=== PATIENT | female | born 1935 | race Caucasian/White ===

== ENCOUNTER 2017-12-10 22:45 | Observation (INO) | payer MEDICARE, OTHER ==
[~2017-12-10] VITALS: Ht 172.7 cm; Wt 74.8 kg
[~2017-12-10 22:45] MED LIST: CALCIUM PO; MIRALAX PO; SYNTHROID75 MCG PO; VITAMIN D PO; VITAMIN E PO
[2017-12-10 23:45] LABS: BASOPHILS % 0.6 % (0.0-1.0); EOSINOPHILS # (AUTO) 0.1 (0.0-0.4); EOSINOPHILS % 2.3 % (0.0-6.0); HEMATOCRIT 38.6 % (34.2-44.1); HEMOGLOBIN 13.4 g/dL (12.0-16.0); LYMPHOCYTES # (AUTO) 0.8 (1.0-3.2); LYMPHOCYTES % 16.1 % (18.0-39.1); MEAN CORPUSCULAR HEMOGLOBIN 29.3 pg (28-32); MEAN CORPUSCULAR HGB CONC 34.7 g/dL (31-35); MEAN CORPUSCULAR VOLUME 84.3 fL (81-99); MONOCYTES # (AUTO) 0.6 (0.2-0.8); MONOCYTES % 12.4 % (4.4-11.3); NEUTROPHILS # (AUTO) 3.3 (2.1-6.9); NEUTROPHILS % 68.2 % (38.7-80.0); PLATELET COUNT 189 x10e3/uL (140-360); RED BLOOD COUNT 4.58 x10e6/uL (3.6-5.1); RED CELL DISTRIBUTION WIDTH 13.5 % (11.7-14.4)
[2017-12-11] VITALS (7 sets, daily range): BP systolic 137–177; BP diastolic 63–82
[2017-12-11 00:01] LABS: INR 0.99; PROTHROMBIN TIME 12.3 seconds (11.9-14.5)
[2017-12-11 00:02] LABS: PARTIAL THROMBOPLASTIN TIME 30.8 seconds (23.8-35.5)
[2017-12-11 00:11] LABS: ANION GAP 13.8 mmol/L (8-16); CALCIUM 10.3 mg/dL (8.4-10.2); CREATININE, SERUM 1.23 mg/dL (0.57-1.11); MAGNESIUM 1.6 MG/DL (1.3-2.1); POTASSIUM 3.8 mmol/L (3.5-5.1)
--- NOTE | 2017-12-11 00:12 | Diagnostic Imaging Report ---
EXAMINATION: Head CT without contrast. HISTORY:Confusion. COMPARISON:Multiple prior studies, most recent MRI brain from 03/26/[address] brain from 01/22/2011. TECHNIQUE: Multidetector axial images were obtained from the foramen magnum to the vertex without contrast. The images were reconstructed using brain and bone algorithms. Thin section brain images were reformatted into coronal and sagittal planes. Intravenous contrast: None IMAGE QUALITY: Acceptable. FINDINGS: Skull/scalp: No lytic or blastic. lesions. No surgical changes. Parenchyma: Nonspecific bilateral frontoparietal patchy white matter hypodensity are likely related to small vessel ischemic changes. No acute hemorrhage, mass or acute major vascular territorial infarct. Arteries: Atherosclerotic calcification in bilateral carotid siphon. Dural sinuses: No abnormal density suggestive of thrombosis. Ventricles: Mild compensated dilatation due to volume loss. Extra-axial spaces: No abnormal density. Brain volume: Normal for age. Craniocervical junction: No mass, Chiari malformation, or basilar invagination. Sella: No mass. Paranasal/mastoid sinuses: Moderate mucosal thickening in hypoplastic right sphenoid sinus. IMPRESSION: 1. No acute intracranial abnormality, particularly no acute hemorrhage, mass or acute major vascular territorial infarct. 2. Moderate supratentorial white matter microvascular ischemic changes. 3. Chronic mucosal inflammatory changes in right sphenoid sinus. Signed by: Dr. Shereen Damon M.D. on 12/11/2017 12:08 AM
[2017-12-11 00:17] LABS: BILIRUBIN,URINE NEGATIVE (NEGATIVE); CLARITY,URINE CLOUDY (CLEAR); COLOR,URINE YELLOW (YELLOW); KETONES,URINE NEGATIVE (NEGATIVE); LEUKOCYTE ESTERASE ,URINE 2+ (NEGATIVE); NITRITE,URINE NEGATIVE (NEGATIVE); PROTEIN,URINE DIPSTICK NEGATIVE (NEGATIVE); URINE UROBILINOGEN 0.2 mg/dL (0.2 - 1)
--- NOTE | 2017-12-11 00:24 | Diagnostic Imaging Report ---
EXAM: CHEST SINGLE (PORTABLE), AP 1 view INDICATION: Confused COMPARISON: PA and lateral view of the chest December 16, 2016 FINDINGS: LINES/TUBES: None LUNGS: No consolidations or edema. PLEURA: No effusions or pneumothorax. HEART AND MEDIASTINUM: Normal size and contour. BONES AND SOFT TISSUES: No acute findings. Chronic fractures of the left upper ribs. IMPRESSION: No acute thoracic abnormality. Signed by: Dr. Tiffany Grayson M.D. on 12/11/2017 12:21 AM
[2017-12-11 00:31] LABS: CREATINE KINASE MB 0.8 ng/mL (0-5.0); THYROID STIMULATING HORMONE 10.773 uIU/mL (0.350-4.940)
[2017-12-11 00:36] LABS: BACTERIA,URINE MANY /HPF; EPITHELIAL CELLS,URINE RARE /LPF; RBC,URINE 0-5 /HPF (0-5); WBC,URINE (MAN) >50 /HPF (0-5)
--- OUTSIDE RECORDS SUMMARY | 2017-12-11 02:29 | XMS REPORT ---
[facility] Address Unknown Phone Unavailable Care Team Providers Care Industrial Cafeteria Manager Name Role Phone JUANCARLOS GREGORY Unavailable Unavailable Problems This patient has no known problems. Allergies, Adverse Reactions, Alerts This patient has no known allergies or adverse reactions. Medications This patient has no known medications. Results Test Description Test Time Test Comments Text Results Atomic Results Result Comments CT BRAIN WO [place] [address] Patient Name: NURY MCCLURE I MR #: [id number] : 1935 Age/Sex: 82/F Req #: [id number] Adm Physician: Ordered by: JUANCARLOS GREGORY MD Report #: [id number] Location: ER Room/Bed: Procedure: [id number] CT/CT BRAIN WO Exam Date: Exam Time: REPORT STATUS: Signed EXAMINATION: Head CT without contrast. HISTORY: Confusion. COMPARISON:Multiple prior studies, most recent MRI brain from 03/26/[address] brain from 01/22/2011. TECHNIQUE: Multidetector axial images were obtained from the foramen magnum to the vertex without contrast. The images were reconstructed using brain and bone algorithms. Thin section brain images were reformatted into coronal and sagittal planes. Intravenous contrast: None IMAGE QUALITY: Acceptable. FINDINGS: Skull/scalp: No lytic or blastic. lesions. No surgical changes. Parenchyma: Nonspecific bilateral frontoparietal patchy white matter hypodensity are likely related to small vessel ischemic changes. No acute hemorrhage, mass or acute major vascular territorial infarct. Arteries: Atherosclerotic calcification in bilateral carotid siphon. Dural sinuses: No abnormal density suggestive of thrombosis. Ventricles: Mild compensated dilatation due to volume loss. Extra-axial spaces: No abnormal density. Brain volume: Normal for age. Craniocervical junction: No mass, Chiari malformation, or basilar invagination. Sella: No mass. Paranasal/mastoid sinuses: Moderate mucosal thickening in hypoplastic right sphenoid sinus. IMPRESSION: 1. No acute intracranial abnormality, particularly no acute hemorrhage, mass or acute major vascular territorial infarct. 2. Moderate supratentorial white matter microvascular ischemic changes. 3. Chronic mucosal inflammatory changes in right sphenoid sinus. Signed by: Dr. Shereen Damon M.D. on 12:08 AM Dictated By: SHEREEN DAMON MD Transcribed By: GORAN on 12/11/177 COPY TO: JUANCARLOS GREGORY MD CHEST SINGLE (PORTABLE) [place] [address] Patient Name: NURY MCCLURE I MR #: [id number] : 1935 Age/Sex: 82/F Req #: [id number] Adm Physician: Ordered by: JUANCARLOS GREGORY MD Report #: [id number] Location: ER Room/Bed: Procedure: [id number] DX/CHEST SINGLE (PORTABLE) Exam Date: Exam Time: REPORT STATUS: Signed EXAM: CHEST SINGLE (PORTABLE ), AP 1 view INDICATION: Confused COMPARISON: PA and lateral view of the chest December 16, 2016 FINDINGS: LINES/TUBES: None LUNGS: No consolidations or edema. PLEURA: No effusions or pneumothorax. HEART AND MEDIASTINUM: Normal size and contour. BONES AND SOFT TISSUES: No acute findings. Chronic fractures of the left upper ribs. IMPRESSION: No acute thoracic abnormality. Signed by: Dr. Mayi Grayson M.D. on 12/11/2017 12:21 AM Dictated By: MAYI GRAYSON MD Transcribed By: GORAN on 20 COPY TO: JUANCARLOS GREGORY MD
[2017-12-11] MEDS ORDERED: ONDANSETRON HCL INJ 2 MG/ML VIAL IV PRN (02:30)
[2017-12-11] MEDS: CEFTRIAXONE SOD 1 GM VIAL IV SCH ×3 (03:18→20:45)
[2017-12-11] MEDS ORDERED: CLONIDINE HCL 0.1 MG TAB PO ONE (04:00)
[2017-12-11 07:25] LABS: CREATINE KINASE MB 0.7 ng/mL (0-5.0)
[2017-12-11] MEDS: ASPIRIN 81 MG ENTERIC COATED PO SCH (08:07)
[2017-12-11] MEDS ORDERED: PANTOPRAZOLE SO40 MG PO (09:11)
[2017-12-11] MEDS ORDERED: REFRESH TEARS15 ML (09:17)
[2017-12-11] MEDS ORDERED: DICYCLOMINE HCL10 MG (09:17)
[2017-12-11] MEDS ORDERED: VITAMIN D32000 UNI1 (09:17)
[2017-12-11] MEDS ORDERED: CALCIUM CARBON500 MG PO (09:17)
[2017-12-11] MEDS ORDERED: CARAFATE1 GM/10 ML PO (09:17)
[2017-12-11] MEDS ORDERED: align (09:17)
[2017-12-11] MEDS ORDERED: LISINOPRIL 10 MG TAB PO ONE (14:45)
[2017-12-11] MEDS ORDERED: POLYETHYLENE GLYCOL 3350 17 GM PACK PO PRN (14:45)
[2017-12-11] MEDS: DICYCLOMINE HCL 10 MG CAP PO SCH ×2 (15:57→20:45)
[2017-12-11 16:06] LABS: CREATINE KINASE MB 0.8 ng/mL (0-5.0)
[2017-12-11] MEDS: SUCRALFATE 1 GM/10 ML SUSP PO SCH (16:11)
--- NOTE | 2017-12-11 18:32 | Consultation ---
DATE OF CONSULTATION: December 11, 2017 NEUROLOGICAL CONSULTATION ADMITTING DIAGNOSIS: TIA. This 82-year-old healthy woman had been in her usual state of health until yesterday evening when she started having a little trouble with some confusion, difficulty finding words and she felt some funny sensation on the left side of her face. She did not say that was weak or there was numbness. She denies any weakness or paresthesia of the arms or legs. She did not have any trouble with balance and no visual difficulty. She had no trouble swallowing at the time. She was brought to the emergency room. in the emergency room and everything was normal, except the blood pressure, according to the daughter, the systolic blood pressure was over 210. The patient denies any previous episode like this in the past. PAST MEDICAL HISTORY: She has history of hypothyroidism. She never had history of high blood pressure until last night. ALLERGIES: NONE KNOWN. SOCIAL HISTORY: Does not smoke or drink. REVIEW OF SYSTEMS: All 12 steps negative except as described above. PHYSICAL EXAMINATION VITAL SIGNS: Blood pressure at the present time is 137/65, pulse 57, temperature 96.2. LUNGS: Clear to auscultation and percussion. HEART: Regular sinus rhythm with no murmurs. ABDOMEN: Soft and nontender, no organomegaly. MUSCULOSKELETAL: Lower extremities with no edema, no cyanosis, no clubbing. NEUROLOGIC: Mental status: Normal. Oriented x3. Speech is clear with no dysarthria or dysphagia. Cranial nerves: Pupils are both equal and reactive. Extraocular movements were full. There is no nystagmus. Visual field was normal. No facial weakness. Tongue protrudes midline. Palatal movement is normal. Motor power: Able to elevate arms and legs against gravity without any difficulty. There was no evidence of weakness in either proximal or distal muscles in both upper and lower extremities. Plantar stimulation down bilaterally. HEAD: Normocephalic. NECK: Supple. Carotid pulsations were present bilaterally. There were no bruits. At the present time, the patient is back to normal. She is being ambulated without any problem. LABORATORY DATA: CBC shows a white count of 4800 with a hemoglobin of 13.4 with hematocrit 38.6, platelets 189,000. Chemistry: Sodium 131, potassium 3.8, BUN 17, creatinine 1.22, which is elevated. Estimated GFR is low at 42. Calcium 10.3. Liver enzymes are all normal. TSH is elevated . Urinalysis shows WBC greater than 50, bacteria many, blood 1+, protein negative. I reviewed the MRI of the brain myself and I do not see any evidence of any acute ischemia or lesion. We do not have the official report. CAT scan was negative. IMPRESSION 1. Mild transient ischemic attack. 2. Hypertension. 3. Urinary tract infection. RECOMMENDATIONS: The patient was explained about all my findings. We are awaiting the results of the MRI and the MRA and the echocardiogram. To continue with Plavix. Continue home medications. I will reevaluate tomorrow. Job#: [id number]
--- NOTE | 2017-12-11 19:05 | Diagnostic Imaging Report ---
Exams: Brain MRI, cervical MRA and intracranial MRAs without IV contrast History: Possible TIA Comparison studies: Multiple prior brain MRIs, head CTs and MRIs which date to the most remote brain MRI of 01/2010, most recent head CT of 12/10/2017 and most recent brain MRI/MRA of 03/26/2017. Technique: Brain: sagittal and axial T2 FS, axial DWI, axial T1, axial T2*GRE and axial coronal T2 FLAIR. Cervical MRA: Axial 2-D [id number] with 3-D MIP reformats. Intracranial MRA: Axial 3-D [id number] with sagittal, coronal and 3-D MIP reformats. Intravenous contrast: None Findings: Brain: Scalp: No abnormal signal. No masses. Bone marrow: Normal in signal intensity. Brain sulci: Mildly prominent but age appropriate Ventricles: Normal in size. No hydrocephalus. Extra-axial spaces: No mass, no fluid collection. Parenchyma: No mass, hemorrhage or acute ischemia. A few scattered and mildly confluent T2 FLAIR hyperintense foci in the supratentorial white matter and a few foci of T2 FLAIR hyperintensity in the humphrey are nonspecific but most compatible with chronic small vessel ischemic changes. Suprasellar region: No abnormalities. Craniocervical junction: No abnormalities. The foramen magnum is patent. No Chiari malformations. Vessels: Normal flow-voids in the arteries and sinuses. Cervical MRA: If present, stenosis is calculated utilizing the NASCET method which calculates the degree of stenosis with reference to the normal lumen of the carotid artery distal to the stenosis. Exam is limited by artifacts related to patient motion. Common carotid arteries: Patent. No signal abnormalities. Internal carotid arteries: Patent. No signal abnormalities. Carotid bulbs: Patent. No gross stenosis though evaluation is limited by motion artifacts. Vertebral arteries: Patent. No signal abnormalities.. Intracranial MRA: Internal carotid arteries: Patent bilaterally. Mild luminal irregularity without significant stenosis in the cavernous segments related to calcified plaque is seen on the previous head CT. Middle cerebral arteries: Patent, no signal abnormalities in the M1 and M2 segments. Anterior cerebral arteries: Patent, no signal abnormalities in the A1 and A2 segments. Vertebrobasilar circulation: Patent. No signal abnormalities.. Anatomical variants: Acom: Visualized. Pcoms:. On the right. Not well visualized, likely hypoplastic on the left. Vertebral arteries: Codominant. Incidental findings: Chronic inflammatory changes in the right sphenoid sinus. IMPRESSION: Brain: 1. No acute abnormalities. 2. Mild to moderate chronic microvascular ischemic changes. Cervical MRA: 1. Exam is limited by artifacts related to patient motion. 2. Patent cervical carotid and vertebral arteries. 3. No gross stenosis at the cervical carotid bulbs, though artifacts limit evaluation. Intracranial MRA: 1. Nonstenotic atherosclerosis in the carotid siphons. 2. No additional intracranial MRA l abnormalities. Signed by: Dr. Brain Coates M.D. on 12/11/2017 7:01 PM
[2017-12-12] VITALS: BP 118/56
[2017-12-12 04:00] VITALS: BP 96/53
[2017-12-12] MEDS ORDERED: LEVOTHYROXINE SODIUM 75 MCG TAB PO SCH ×2 (06:00→09:00)
[2017-12-12 07:04] LABS: CHOL/HDL RATIO 3.4 (3.0-3.6)
[2017-12-12 08:00] VITALS: BP 123/57
[2017-12-12 08:17] VITALS: BP 123/57
[2017-12-12] MEDS ORDERED: PANTOPRAZOLE SOD 40 MG TABEC PO SCH (09:00)
[2017-12-12] MEDS ORDERED: OYST-CAL-D 500MG TABLET PO SCH ×2 (09:00)
[2017-12-12] MEDS ORDERED: LISINOPRIL 10 MG TAB PO SCH (09:00)
[2017-12-12] MEDS: SUCRALFATE 1 GM/10 ML SUSP PO SCH (10:07)
[2017-12-12] MEDS: DICYCLOMINE HCL 10 MG CAP PO SCH (10:07)
[2017-12-12] MEDS: ASPIRIN 81 MG ENTERIC COATED PO SCH (10:07)
[2017-12-12] MEDS: CEFTRIAXONE SOD 1 GM VIAL IV SCH (10:07)
[2017-12-12] MEDS ORDERED: AUGMENTIN 875-1 EACH PO (10:45)
[2017-12-12] MEDS ORDERED: PLAVIX75 MG PO (10:46)
[2017-12-12 11:30] VITALS: BP 178/69
== END 2017-12-12 11:18 | disposition home or self-care (01) ==
LOC: ER 22:45 → ERHOLD 12-11 02:27 → IMCU 12-11 02:52
DX: G45.2 Multiple and bilateral precerebral artery syndromes (principal); N30.00 Acute cystitis without hematuria; I10 Essential (primary) hypertension; E03.9 Hypothyroidism, unspecified
CPT/HCPCS: 36415 ×2; 70450; 70544; 70547; 70551; 71045; 80053; 80061; 81001; 82550 ×2; 82553 ×2; 83735; 84443; 84484 ×2; 85025; 85610; 85730; 87086; 93005; 93306; 97139; 99284; G0378 ×2; J0696 ×2

== ENCOUNTER 2018-03-10 19:40 | Observation (INO) | payer MEDICARE, OTHER ==
[~2018-03-10] VITALS: Ht 172.7 cm; Wt 69.1 kg
[~2018-03-10 19:40] MED LIST changes: +AUGMENTIN 875-1 EACH PO; +CALCIUM CARBON500 MG PO; +CARAFATE1 GM/10 ML PO; +DICYCLOMINE HCL10 MG; +PANTOPRAZOLE SO40 MG PO; +PLAVIX75 MG PO; +REFRESH TEARS15 ML; +VITAMIN D32000 UNI1; +align
[2018-03-10] MEDS ORDERED: METHYLPREDNISOLONE SOD SUCC 125 MG/2ML VIAL IV STA (20:16)
[2018-03-10] MEDS ORDERED: DIPHENHYDRAMINE HCL INJ 50 MG/ML VIAL IV ONE (20:30)
[2018-03-10] MEDS ORDERED: SODIUM CHLORIDE 0.9% 500ML 500 ML IV ONE ×2 (20:30→23:15)
[2018-03-10] MEDS ORDERED: FAMOTIDINE 20 MG/2 ML VIAL IV NR (20:30)
[2018-03-10 20:37] LABS: BASOPHILS % 0.1 % (0.0-1.0); EOSINOPHILS % 0.3 % (0.0-6.0); HEMOGLOBIN 13.8 g/dL (12.0-16.0); LYMPHOCYTES # (AUTO) 0.3 (1.0-3.2); LYMPHOCYTES % 2.2 % (18.0-39.1); MEAN CORPUSCULAR HEMOGLOBIN 29.8 pg (28-32); MEAN CORPUSCULAR HGB CONC 35.4 g/dL (31-35); MEAN CORPUSCULAR VOLUME 84.2 fL (81-99); MONOCYTES # (AUTO) 0.8 (0.2-0.8); NEUTROPHILS # (AUTO) 12.7 (2.1-6.9); PLATELET COUNT 180 x10e3/uL (140-360); RED BLOOD COUNT 4.63 x10e6/uL (3.6-5.1); RED CELL DISTRIBUTION WIDTH 13.8 % (11.7-14.4)
[2018-03-10 20:46] LABS: INR 1.14; PARTIAL THROMBOPLASTIN TIME 29.8 seconds (23.8-35.5); PROTHROMBIN TIME 13.7 seconds (11.9-14.5)
[2018-03-10 20:56] LABS: ALBUMIN 3.9 g/dL (3.5-5.0); ALBUMIN/GLOBULIN RATIO 1.1 (0.8-2.0); CALCIUM 9.8 mg/dL (8.4-10.2); CREATININE, SERUM 1.16 mg/dL (0.57-1.11); MAGNESIUM 1.5 MG/DL (1.3-2.1)
[2018-03-10 20:58] LABS: B-TYPE NATRIURETIC PEPTIDE2 221.1 pg/mL (0-100)
--- NOTE | 2018-03-10 21:10 | Diagnostic Imaging Report ---
EXAMINATION: CHEST SINGLE (NOT PORTABLE) INDICATION: \S\PALPITATIONS COMPARISON: Chest x-ray 12/10/2017 FINDINGS: AP view TUBES and LINES: None. LUNGS: Lungs are well inflated. There are bibasilar atelectasis and scarring. There is no evidence of pneumonia or pulmonary edema. PLEURA: No pleural effusion or pneumothorax. HEART AND MEDIASTINUM: The cardiomediastinal silhouette is unremarkable. BONES AND SOFT TISSUES: No acute osseous lesion. Numerous left healed rib fracture deformities. Soft tissues are unremarkable. UPPER ABDOMEN: No free air under the diaphragm. IMPRESSION: Bibasilar atelectasis and scarring. Signed by: Dr. Efraín Abad M.D. on 03/10/2018 9:07 PM
[2018-03-10 21:15] LABS: CREATINE KINASE MB 0.3 ng/mL (0-5.0); THYROID STIMULATING HORMONE 2.958 uIU/mL (0.350-4.940)
[2018-03-11] VITALS (9 sets, daily range): BP systolic 121–135; BP diastolic 59–71
[2018-03-11 00:26] LABS: BILIRUBIN,URINE 1+ (NEGATIVE); COLOR,URINE YELLOW (YELLOW); KETONES,URINE TRACE (NEGATIVE); LEUKOCYTE ESTERASE ,URINE NEGATIVE (NEGATIVE); NITRITE,URINE NEGATIVE (NEGATIVE); PROTEIN,URINE DIPSTICK 1+ (NEGATIVE); URINE UROBILINOGEN 0.2 mg/dL (0.2 - 1)
[2018-03-11 00:31] LABS: CLARITY,URINE HAZY (CLEAR); RBC,URINE 0-5 /HPF (0-5)
[2018-03-11 00:32] LABS: BACTERIA,URINE MODERATE /HPF; EPITHELIAL CELLS,URINE FEW /LPF; MUCUS,URINE MANY (RARE); TRANSITIONAL EPI CELLS,URINE FEW
[2018-03-11] MEDS ORDERED: ONDANSETRON HCL INJ 2 MG/ML VIAL IV PRN (01:00)
[2018-03-11] MEDS: CEFTRIAXONE SOD 1 GM VIAL IV SCH ×2 (01:57→13:04)
[2018-03-11] MEDS: SODIUM CHLORIDE 0.9% 1000ML 1,000 ML IV SCH ×3 (01:57→20:31)
[2018-03-11 05:14] LABS: ALBUMIN 3.3 g/dL (3.5-5.0); ALBUMIN/GLOBULIN RATIO 1.1 (0.8-2.0); ANION GAP 13.7 mmol/L (8-16); CREATININE, SERUM 1.1 mg/dL (0.57-1.11); POTASSIUM 3.7 mmol/L (3.5-5.1)
[2018-03-11 05:22] LABS: CREATINE KINASE MB 0.3 ng/mL (0-5.0)
[2018-03-11 06:10] LABS: BASOPHILS % 0.2 % (0.0-1.0); EOSINOPHILS % 0.1 % (0.0-6.0); HEMATOCRIT 33.9 % (34.2-44.1); HEMOGLOBIN 11.7 g/dL (12.0-16.0); LYMPHOCYTES # (AUTO) 0.6 (1.0-3.2); MEAN CORPUSCULAR HEMOGLOBIN 29.5 pg (28-32); MEAN CORPUSCULAR HGB CONC 34.5 g/dL (31-35); MEAN CORPUSCULAR VOLUME 85.6 fL (81-99); MONOCYTES # (AUTO) 0.2 (0.2-0.8); MONOCYTES % 1.9 % (4.4-11.3); NEUTROPHILS # (AUTO) 8.7 (2.1-6.9); NEUTROPHILS % 91.3 % (38.7-80.0); PLATELET COUNT 157 x10e3/uL (140-360); RED BLOOD COUNT 3.96 x10e6/uL (3.6-5.1); RED CELL DISTRIBUTION WIDTH 13.8 % (11.7-14.4)
[2018-03-11] MEDS: FAMOTIDINE 20 MG/2 ML VIAL IV SCH ×2 (08:46→17:45)
[2018-03-11 11:48] LABS: CREATINE KINASE 33 IU/L (29-168)
--- NOTE | 2018-03-11 16:39 | Consultation ---
DATE OF CONSULTATION: March 11, 2018 REFERRING PHYSICIAN: Dr. Robles REASON FOR CONSULTATION: Chronic urinary tract infections. HISTORY: Patient, by history, comes to the office with a history of urinary tract infection, chronic, since of last year. The interesting thing is about that time the patient had a pessary placed in by her metal buildings assembler because of a prolapsing vagina. She was being treated with Macrobid once a day and she still has problems with infections. She came to the office, we obtained a urine culture which revealed multiple organisms like it was a contaminant. She was brought back to the office where a catheterized specimen revealed enterococcus and ever and she was given appropriate medications. She stated that after taking her medications she felt ill to the point of having nausea, vomiting, and having lack of concentration. She came to the hospital after that. Here in the hospital a urine culture has been performed. Urinalysis revealed a moderate amount of bacteria with negative nitrites. In the office, a catheterized specimen revealed 100% enterococcus sensitive to Augmentin and she had been placed on Augmentin. Doubt very much that the culture, unless it was catheterized here in the hospital, would be really bladder population, this is probably going to be contamination. Also the urinalysis done here in the hospital yesterday showed many mucous. Her BUN was 18 and the creatinine was 1.1. White count was 13.9 upon admission, today is 9.5. Patient had a chest x-ray upon coming into the hospital and the chest x-ray showed some atelectasis and scarring. IMPRESSION 1. History of urinary tract infection. 2. Side effects of medication. RECOMMENDATIONS: While the patient is in the hospital, we will await the final report on her urine culture. In the office it proved to be ever and enterococcus sensitive to Augmentin which she was taking. Here in the hospital I would like to do an ultrasound of her kidneys and make sure that the kidneys are free of stones or cysts. We will also be checking to make sure that her bladder empties well. She does have a pessary. This may cause an obstruction of the flow of urine. We will be checking for that. Job#: [id number] JACKIE
[2018-03-11] MEDS: DICYCLOMINE HCL 10 MG CAP PO SCH ×2 (17:45→20:31)
[2018-03-11] MEDS: SUCRALFATE 1 GM/10 ML SUSP PO SCH (17:45)
--- NOTE | 2018-03-11 18:01 | Diagnostic Imaging Report ---
PROCEDURE:US RETROPERITONEAL ( KIDNEY ). COMPARISON:None. INDICATIONS:UTI, PLEASE DO PRE AND POST VOID OF THE BLADDER TECHNIQUE: Morrissey-scale and color sonographic images of the bilateral kidneys and bladder where obtained in transverse and longitudinal planes. FINDINGS: RIGHT KIDNEY: 8.8 x 3.6 x 4.9 cm, cortex 1 cm Cysts: None Solid masses: Hyperechoic 2 x 2.1 x 1.8 cm lesion in the interpolar region. Stones: None Hydronephrosis: None Echogenicity: Normal LEFT KIDNEY: 10.1 x 5.5 x 5.4 cm, cortex 1.8 cm Cysts: None Solid masses: None Stones: None Hydronephrosis: None Echogenicity: Normal Bladder: Mild wall thickening measuring 5 mm. Pre-void volume: 186.2 cc Post void volume: Collapsed. CONCLUSION: No significant post void residuals within the bladder. Mild bladder wall thickening in keeping with infectious cystitis. Hyperechoic 2 cm lesion in the right kidney may represent an angiomyolipoma. Recommend followup ultrasound in 6 months, or alternatively MRI abdomen without and with contrast if definitive characterization is desired. Dictated by: Jeffy Torres M.D. on 03/11/2018 at 18:04 Electronically approved by: Jeffy Torres M.D. on 03/11/2018 at 18:04
--- NOTE | 2018-03-11 18:02 | Diagnostic Imaging Report ---
PROCEDURE:US PELVIC (NON OB) STEPHEN OR F/U COMPARISON:None. INDICATIONS:UTI, PLEASE DO PRE AND POST VOID OF THE BLADDER TECHNIQUE:A pelvic ultrasound was completed in the usual manner. FINDINGS: Please refer to same day ultrasound of the retroperitoneum. CONCLUSION: Please refer to same day ultrasound of the retroperitoneum. Dictated by: Jeffy Torres M.D. on 03/11/2018 at 18:05 Electronically approved by: Jeffy Torres M.D. on 03/11/2018 at 18:05
[2018-03-11 21:33] LABS: CREATINE KINASE 60 IU/L (29-168)
[2018-03-12] VITALS: BP_SYST 133; BP_SYST 137; BP_DIAS 71; BP_DIAS 83
[2018-03-12] MEDS: CEFTRIAXONE SOD 1 GM VIAL IV SCH (00:54)
[2018-03-12 04:00] VITALS: BP 146/62
[2018-03-12 05:50] LABS: BASOPHILS % 0.4 % (0.0-1.0); EOSINOPHILS # (AUTO) 0.2 (0.0-0.4); EOSINOPHILS % 2.8 % (0.0-6.0); HEMATOCRIT 29.5 % (34.2-44.1); HEMOGLOBIN 10.3 g/dL (12.0-16.0); LYMPHOCYTES # (AUTO) 1.1 (1.0-3.2); LYMPHOCYTES % 13.9 % (18.0-39.1); MEAN CORPUSCULAR HEMOGLOBIN 29.5 pg (28-32); MEAN CORPUSCULAR HGB CONC 34.9 g/dL (31-35); MEAN CORPUSCULAR VOLUME 84.5 fL (81-99); MONOCYTES # (AUTO) 0.7 (0.2-0.8); MONOCYTES % 8.3 % (4.4-11.3); PLATELET COUNT 144 x10e3/uL (140-360); RED BLOOD COUNT 3.49 x10e6/uL (3.6-5.1); RED CELL DISTRIBUTION WIDTH 13.8 % (11.7-14.4)
[2018-03-12] MEDS ORDERED: LEVOTHYROXINE SODIUM 75 MCG TAB PO SCH ×2 (06:00→09:00)
[2018-03-12 06:11] LABS: ANION GAP 11.6 mmol/L (8-16); CALCIUM 8.7 mg/dL (8.4-10.2); CREATININE, SERUM 0.89 mg/dL (0.57-1.11); POTASSIUM 3.6 mmol/L (3.5-5.1)
[2018-03-12 07:54] VITALS: BP 138/67
[2018-03-12] MEDS: DICYCLOMINE HCL 10 MG CAP PO SCH (08:25)
[2018-03-12] MEDS: FAMOTIDINE 20 MG/2 ML VIAL IV SCH (08:25)
[2018-03-12] MEDS: SODIUM CHLORIDE 0.9% 1000ML 1,000 ML IV SCH (08:25)
[2018-03-12] MEDS: SUCRALFATE 1 GM/10 ML SUSP PO SCH (08:25)
[2018-03-12] MEDS ORDERED: CLOPIDOGREL BISULFATE 75 MG TAB PO SCH (09:00)
[2018-03-12] MEDS ORDERED: PANTOPRAZOLE SOD 40 MG TABEC PO SCH (09:00)
[2018-03-12 11:02] VITALS: BP 138/67
[2018-03-12] MEDS ORDERED: FAMOTIDINE 20 MG TAB PO SCH (16:30)
== END 2018-03-12 11:30 | disposition home or self-care (01) ==
LOC: ER 19:40 → ERHOLD 03-11 01:06 → IMCU 03-11 02:10
DX: L27.1 Localized skin eruption due to drugs and medicaments taken internally (principal); T37.8X5A Adverse effect of other specified systemic anti-infectives and antiparasitics, initial encounter; E87.1 Hypo-osmolality and hyponatremia; E86.0 Dehydration; N30.00 Acute cystitis without hematuria
CPT/HCPCS: 36415 ×3; 71045; 76770; 76857; 80048; 80053 ×2; 81001; 82550 ×2; 82553 ×2; 83605; 83735; 83880; 84443; 84484 ×2; 85025 ×3; 85610; 85730; 87040; 87086; 93005; 99284; G0378 ×2; J0696 ×2; J1200; J2930; J7030 ×2; J7040; S0164

== ENCOUNTER 2019-04-28 17:26 | Emergency (ER) | payer MEDICARE, OTHER ==
[~2019-04-28] VITALS: Ht 172.7 cm; Wt 68.9 kg
--- OUTSIDE RECORDS SUMMARY | 2019-04-28 17:29 | XMS REPORT | Clinical Summary ---
Author Author [facility] Address Unknown Phone Unavailable Care Team Providers Care Linen Supervisor Name Role Phone RoblesBradly argueta Kimberly PCP Allergies Comments Active Allergy Reactions Severity Noted Date Iodine And Iodide 03/03/2017 Containing Products Sulfa (Sulfonamide 03/03/2017 Antibiotics) Medications End Date Status Medication Sig Dispensed Refills Start Date Active levothyroxine (SYNTHROID, Take 100 mcg 0 LEVOTHROID) 100 MCG by mouth tablet Every morning on an empty stomach. Active multivitamin per tablet Take 1 tablet 0 by mouth daily. Active polymyxin B 1 drop. 0 sulf-trimethoprim 10,000 unit- 1 mg/mL Drop Active polyethylene glycol Take 17 g by 0 (GLYCOLAX) 17 gram packet mouth daily. Active calcium carbonate-vitamin Take 1 tablet 0 D3 (CALCIUM-VITAMIN D) by mouth 2 500 mg(1,250mg) -200 unit (two) times per tablet daily with breakfast and dinner. Active vitamin E 1000 UNIT Take 1,000 0 capsule Units by mouth daily. Active omeprazole (PRILOSEC) 10 Take 10 mg by 0 MG capsule mouth daily. Active cetirizine (ZYRTEC) 10 MG Take 10 mg by 0 tablet mouth daily. Active Problems Not on file Social History Date Tobacco Use Types Packs/Day Years Used Passive Smoke Exposure - Never Smoker Alcohol Use Drinks/Week oz/Week Comments No Sex Assigned at Date Recorded Not on file Industry Job Start Date Occupation Not on file Not on file Not on file Travel End Travel History Travel Start No recent travel history available. Last Filed Vital Signs Not on file Plan of Treatment Not on file Implants Device Identifier Shelf Expiration Date Model / Serial / Lot Implanted Type Area [facility] 05/27/2020 ZOH40-18.0 / [id number] / Iol Tecnis Zcb00 20.0 [employer] Left: Eye ADV MED [id number] - [id number] [id number] OPTICS Implanted: Qty: 1 on 03/04/2017 by Trang Pastor MD 10/26/2020 [id number] / [id number] / Iol Tecnis [id number] 22.5 [employer] Right: Eye ADV MED [id number] - [id number] [id number] OPTICS Implanted: Qty: 1 on 03/18/2017 by Trang Pastor MD Results Not on fileafter 04/27/2018 Insurance Payer Benefit Subscriber ID Type Phone Address Plan / Group MEDICARE MEDICARE A xxxxxxxxxx Medicare B [facility] xxxxxxxx [employer]
--- OUTSIDE RECORDS SUMMARY | 2019-04-28 17:29 | XMS REPORT ---
Author Author Jose Aviles [facility] [employer] Address Unknown Phone Unavailable Care Team Providers Care Scale And Skip Car Operator Name Role Phone Jose Aviles CP Unavailable Allergies No Known Allergies Problems Problem Type Condition Code Onset Dates Condition Status Problem Otalgia, left ear H92.02 Active Problem Deviated nasal septum J34.2 Active Problem Hearing loss, Sensorineural - Bilateral H90.3 Active Problem Hearing loss - Sensorineural Bilateral H90.3 Active Problem Vertigo - BPPV * 386.11 Active Problem Hypertrophy of nasal turbinates J34.3 Active Problem Spondylosis without myelopathy or radiculopathy, 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 Problem Dizziness and giddiness R42 Active Problem Sensorineural hearing loss, unilateral, right ear, with restricted hearing on the contralateral side H90.A21 Active Problem Xerostomia R68.2 Active Problem 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
--- OUTSIDE RECORDS SUMMARY | 2019-04-28 17:29 | XMS REPORT ---
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
--- OUTSIDE RECORDS SUMMARY | 2019-04-28 17:29 | XMS REPORT ---
Author Author Jose Aviles [facility] [employer] Address Unknown Phone Unavailable Care Team Providers Care Machine Hoop Maker Helper Name Role Phone Jose Aviles CP Unavailable Allergies, Adverse Reactions, Alerts Substance Reaction Event Type [place]-Heel Info Not Available Drug Allergy Tetanus Immune Globulin Info Not Available Drug Allergy Iodine Info Not Available Drug Allergy Problems Problem Type Condition Code Onset Dates Condition Status Problem Otalgia, left ear H92.02 Active Problem Deviated nasal septum J34.2 Active Problem Hearing loss, Sensorineural - Bilateral H90.3 Active Problem Dizziness and giddiness R42 Active Assessment Dizziness and giddiness R42 Active Problem Sensorineural hearing loss, unilateral, right ear, with restricted hearing on the contralateral side H90.A21 Active Assessment Vertigo of central origin, bilateral H81.43 Active Problem Xerostomia R68.2 Active Problem 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 Problem Impacted cerumen, bilateral H61.23 Active Problem Mixed conductive and sensorineural hearing loss, unilateral, 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3 Active Problem Spondylosis without myelopathy or radiculopathy, 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 Medications Medication Code System Code Instructions Start Date End Date Status Dosage Vitamin E [facility] [address]45 Active not defined ZyrTEC [facility] 0 Active not defined MiraLax [facility] [address]-56 Active not defined Levothyroxine Sodium [facility] [address]-27 Active not defined Prilosec [facility] [address]-58 Active not defined Magnesium NDC 0 Active not defined Plavix [facility] [address]-69 Active not defined Pantoprazole Sodium [facility] [address]-44 Active not defined Doxycycline [facility] [address]-52 Active not defined Calcium NDC 0 200 MG Orally Active not defined Results No Known Results Summary Purpose [employer]ClinicalWorks Submission
--- NOTE | 2019-04-28 18:35 | Diagnostic Imaging Report ---
LOWER LEG LEFT - 3 views HISTORY: Pain COMPARISON: None available. FINDINGS: Bones: No acute displaced fracture. Osseous alignment is within normal limits. Calcaneal enthesophytes. Joints: The joint spaces are well-maintained. Soft tissues: The soft tissues appear unremarkable. IMPRESSION: No acute radiographic abnormality. Signed by: Dr. Kendall Mason MD on 04/28/2019 6:32 PM
--- NOTE | 2019-04-28 18:36 | Diagnostic Imaging Report ---
KNEE LEFT THREE VIEWS - 3 views HISTORY: Pain COMPARISON: None available. FINDINGS: Bones: No acute displaced fracture. Osseous alignment is within normal limits. Joints: Medial and patellofemoral compartments joint space narrowing. Soft tissues: The soft tissues appear unremarkable. IMPRESSION: No acute fracture or dislocation of the left knee. Signed by: Dr. Kendall Mason MD on 04/28/2019 6:33 PM
--- NOTE | 2019-04-28 18:47 | Diagnostic Imaging Report ---
Exam: Left foot series, 3 views. Clinical History: Injury to left ankle Comparison: None. Findings: 3 views of the left foot. There is decreased bone mineralization, which limits evaluation of the bony structure. Deformity at the medial aspect of the base of the first metacarpal bone, with linear lucency and questionable cortical step off, which may represent a nondisplaced fracture. Deformity is also noted at the base of the second metatarsal bone, with widening of the space between the base of the first and second metatarsal bones and soft tissue hyperdensity. Degenerative changes in the medial cuneiform/first metatarsal joint. Cortical step-off and linear lucency is also noted at the base of the second toe proximal phalanx, consistent with an acute minimally displaced fracture, with intra-articular extension Moderate anterior and posterior calcaneal enthesophytes. Mild soft tissue swelling. Impression: 1. Exam limited by generalized osteopenia. 2. Suspected acute, nondisplaced fracture at the medial aspect of the base of the first metacarpal bone. 3 Findings at the base of the second metatarsal bone with widening of the space between the base of the first and second metatarsal bones may reflect a Lisfranc injury in the appropriate clinical setting. 4. Acute, minimally displaced fracture at the base of the second toe proximal phalanx Signed by: Dr. Erick Suggs M.D. on 04/28/2019 6:44 PM
--- NOTE | 2019-04-28 18:48 | Diagnostic Imaging Report ---
Exam: Left Ankle Series. History: Injury to left ankle Comparison: None. DISCUSSION: 3 views of the left ankle. There is decreased bone mineralization, which limits evaluation of the bony structures. No evidence of acute, displaced fracture or dislocation. Ankle mortise is preserved.No osteochondral lesion. No abnormal soft tissue calcification or mass. Moderate soft tissue swelling surrounding the ankle. IMPRESSION: 1. Generalized osteopenia, which limits evaluation of the bony structures. 2. Moderate soft tissue swelling surrounding the ankle. No acute, displaced fracture or dislocation. The staff physician below has personally reviewed this exam on the date of dictation. Signed by: Dr. Erick Suggs M.D. on 04/28/2019 6:45 PM
[2019-04-28] MEDS: TRAMADOL HCL 50 MG TAB PO ONE ×2 (19:04→19:09)
[2019-04-28 20:40] VITALS: BP 120/63
== END 2019-04-28 20:40 | disposition home or self-care (01) ==
LOC: ER 17:26
DX: S92.315A Nondisplaced fracture of first metatarsal bone, left foot, initial encounter for closed fracture (principal); S92.512A Displaced fracture of proximal phalanx of left lesser toe(s), initial encounter for closed fracture; M25.562 Pain in left knee; M25.572 Pain in left ankle and joints of left foot; W01.0XXA Fall on same level from slipping, tripping and stumbling without subsequent striking against object, initial encounter; Y92.008 Other place in unspecified non-institutional (private) residence as the place of occurrence of the external cause
CPT/HCPCS: 99283

== ENCOUNTER → 2019-05-05 | Outpatient (CLI) | payer MEDICARE, OTHER ==
--- NOTE | 2019-05-05 16:47 | Diagnostic Imaging Report ---
TECHNIQUE: Computed tomography imaging of the left foot was performed WITHOUT injected contrast. Dose modulation, iterative reconstruction, and/or weight based adjustment of the mA/kV was utilized to reduce the radiation dose to as low as reasonably achievable. HISTORY: 1st metatarsal fracture COMPARISON: None available. DISCUSSION: Subacute appearing fracture along the tarsometatarsal articulation with lateral widening of the Lisfranc interval with callus formation. Nondisplaced intra-articular fracture first metatarsal base. Nondisplaced fracture of the inferolateral medial cuneiform. Mildly displaced intra-articular fracture second metatarsal base medially. IMPRESSION: Subacute appearing Lisfranc injury with mild lateral widening of the Lisfranc interval and callus formation. Fractures of the medial tarsometatarsal articulations as above. Signed by: Dr. Selwyn Singh M.D. on 05/05/2019 4:44 PM
== END ==
LOC: CT 13:44
PROVIDERS: ATTEND Specialist
DX: S92.312A Displaced fracture of first metatarsal bone, left foot, initial encounter for closed fracture (principal); S92.512A Displaced fracture of proximal phalanx of left lesser toe(s), initial encounter for closed fracture; S93.622A Sprain of tarsometatarsal ligament of left foot, initial encounter

== ENCOUNTER → 2020-11-29 | Outpatient (CLI) | payer MEDICARE, OTHER | LOC: RAD 13:30 | PROVIDERS: ATTEND Internal Medicine Gastroenterology | DX: K59.09 Other constipation (principal) | CPT/HCPCS: 74018 ==

== ENCOUNTER → 2021-05-22 | Outpatient (CLI) | payer MEDICARE, OTHER ==
[~2021-05-22] MED LIST changes: +IOPAMIDOL 370 MG/ML 200 ML INFUS..BTL INJ ONE; +SODIUM CHLORIDE 0.9% 500ML 500 ML ONE; +SODIUM CHLORIDE 0.9% 50ML 50 ML ONE
== END ==
LOC: CT 15:47
PROVIDERS: ATTEND Internal Medicine Gastroenterology
DX: K29.60 Other gastritis without bleeding (principal); R10.32 Left lower quadrant pain
CPT/HCPCS: 74177; 96360; J7040; Q9967

== ENCOUNTER 2022-05-29 11:18 | Observation (INO) | payer MEDICARE, OTHER ==
[~2022-05-29] VITALS: Ht 172.7 cm; Wt 62.6 kg
[~2022-05-29 11:18] MED LIST changes: -IOPAMIDOL 370 MG/ML 200 ML INFUS..BTL INJ ONE; -SODIUM CHLORIDE 0.9% 500ML 500 ML ONE; -SODIUM CHLORIDE 0.9% 50ML 50 ML ONE
[2022-05-29] MEDS ORDERED: FAMOTIDINE 20 MG/2 ML VIAL IV STA (12:20)
[2022-05-29] MEDS ORDERED: NITROGLYCERIN 0.4 MG SUBL SL PRN (14:00)
[2022-05-29] MEDS ORDERED: ASPIRIN 81 MG CHEW TAB PO ONE (14:00)
[2022-05-29] MEDS ORDERED: SODIUM CHLORIDE FLUSH 10 ML SYR INJ PRN (14:00)
[2022-05-29 14:30] VITALS: BP 148/62
[2022-05-29 15:21] VITALS: BP 148/62
[2022-05-29] MEDS: SUCRALFATE 1 GM/10 ML SUSP PO SCH (17:05)
[2022-05-29 17:22] LABS: CREATINE KINASE MB 0.8 ng/mL (0-5.0)
[2022-05-29 17:53] LABS: THYROID STIMULATING HORMONE 0.002 uIU/mL (0.350-4.940)
[2022-05-29 20:00] VITALS: BP 155/73
[2022-05-29] MEDS: DICYCLOMINE HCL 10 MG CAP PO SCH (21:31)
[2022-05-30] VITALS: BP 163/65
[2022-05-30 04:00] VITALS: BP 149/61
[2022-05-30 04:21] LABS: BASOPHILS % 0.5 % (0.0-1.0); EOSINOPHILS # (AUTO) 0.3 (0.0-0.4); HEMOGLOBIN 12.4 g/dL (12.0-16.0); LYMPHOCYTES % 22.4 % (18.0-39.1); MEAN CORPUSCULAR HEMOGLOBIN 27.6 pg (28-32); MEAN CORPUSCULAR HGB CONC 32.6 g/dL (31-35); MEAN CORPUSCULAR VOLUME 84.6 fL (81-99); MONOCYTES # (AUTO) 0.6 (0.2-0.8); NEUTROPHILS # (AUTO) 2.5 (2.1-6.9); NEUTROPHILS % 55.9 % (38.7-80.0); PLATELET COUNT 186 x10e3/uL (140-360); RED BLOOD COUNT 4.49 x10e6/uL (3.6-5.1); RED CELL DISTRIBUTION WIDTH 12.9 % (11.7-14.4)
[2022-05-30 04:42] LABS: ALBUMIN 3.3 g/dL (3.5-5.0); ANION GAP 12.8 mmol/L (8-16); CALCIUM 9.5 mg/dL (8.4-10.2); CHOL/HDL RATIO 3.2 (3.0-3.6); CREATININE, SERUM 0.81 mg/dL (0.57-1.11); POTASSIUM 3.8 mmol/L (3.5-5.1)
[2022-05-30 05:01] LABS: CREATINE KINASE MB 0.7 ng/mL (0-5.0)
[2022-05-30 05:02] LABS: THYROID STIMULATING HORMONE 0.001 uIU/mL (0.350-4.940)
[2022-05-30] MEDS ORDERED: LEVOTHYROXINE SODIUM 75 MCG TAB PO SCH (06:00)
[2022-05-30 07:47] VITALS: BP 152/67
[2022-05-30] MEDS: SUCRALFATE 1 GM/10 ML SUSP PO SCH (08:31)
[2022-05-30] MEDS: DICYCLOMINE HCL 10 MG CAP PO SCH (08:42)
[2022-05-30 09:00] VITALS: BP 152/67
[2022-05-30] MEDS ORDERED: PANTOPRAZOLE SOD 40 MG TABEC PO SCH (09:00)
[2022-05-30] MEDS ORDERED: OYST-CAL-D 500MG TABLET PO SCH (09:00)
[2022-05-30] MEDS ORDERED: CLOPIDOGREL BISULFATE 75 MG TAB PO SCH (09:00)
[2022-05-30 09:43] VITALS: BP 152/67
[2022-05-30 10:49] VITALS: BP 150/71
== END 2022-05-30 11:50 | disposition home or self-care (01) ==
LOC: FSED 11:28 → ERHOLD 13:56 → MED/SURG 15:21
DX: I25.10 Atherosclerotic heart disease of native coronary artery without angina pectoris (principal); E03.9 Hypothyroidism, unspecified; K21.9 Gastro-esophageal reflux disease without esophagitis; M81.0 Age-related osteoporosis without current pathological fracture; R03.0 Elevated blood-pressure reading, without diagnosis of hypertension; I44.7 Left bundle-branch block, unspecified; Z20.822 Contact with and (suspected) exposure to COVID-19
CPT/HCPCS: 0223U; 36415 ×2; 71046; 80053 ×2; 80061; 81003; 82550 ×2; 82553 ×2; 83880; 84436; 84443 ×2; 84479; 84484 ×2; 85025 ×2; 93005; 93306; 99284; G0378 ×2